=== PATIENT | female | born 1995 | race Caucasian/White ===

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

== ENCOUNTER 2018-02-04 17:13 | Emergency (ER) | payer BC ==
[2018-02-04 18:06] VITALS: BP 121/88
--- NOTE | 2018-02-04 19:14 | UC ---
UC General HPI - HPI Summary HPI Summary: pt presents for evaluation of her vaginal discharge and possible thrush. she states she saw the school nurse and was told that it looks like she has thrush. She denies any new sexual partners since August. she does state that her vaginal discharge has had an odor. she states that she can scrape - History of Current Complaint Chief Complaint: UCGeneralIllness Stated Complaint: ORAL COMPLAINT Hx Obtained From: Patient Hx Last Menstrual Period: 01/23/18 Onset/Duration: Gradual Onset Onset Severity: Mild Current Severity: None Pain Intensity: 0 - Allergy/Home Medications Allergies/Adverse Reactions: Allergies Allergy/AdvReac Type Severity Reaction Status Date / Time No Known Allergies Allergy Verified 02/04/18 17:56 Home Medications: Home Medications Norethindrone-Ethinyl Estrad [Balziva 28 Tablet] 1 tab DAILY 02/04/18 [History Confirmed 02/04/18] PMH/Surg Hx/FS Hx/Imm Hx Previously Healthy: Yes - Surgical History Surgical History: None - Social History Alcohol Use: Occasionally Substance Use Type: None Smoking Status (MU): Never Smoked Tobacco - Immunization History Most Recent Tetanus Shot: UTD Review of Systems All Other Systems Reviewed And Are Negative: Yes Constitutional: Positive: Negative Skin: Positive: Negative Eyes: Positive: Negative ENT: Positive: Other - tongue white discoloration and discomfort Respiratory: Positive: Negative Cardiovascular: Positive: Negative Gastrointestinal: Positive: Negative Genitourinary: Positive: Vaginal/Penile Discharge Motor: Positive: Negative Neurovascular: Positive: Negative Musculoskeletal: Positive: Negative Neurological: Positive: Negative Psychological: Positive: Negative Is Patient Immunocompromised?: No Physical Exam Triage Information Reviewed: Yes Appearance: Well-Appearing, No Pain Distress, Well-Nourished Vital Signs: Initial Vital Signs Temp 97.2 F 02/04/18 17:58 Pulse 81 02/04/18 17:58 Resp 16 02/04/18 17:58 BP 121/88 02/04/18 17:58 Pulse Ox 100 02/04/18 17:58 Vital Signs Reviewed: Yes Eye Exam: Normal ENT: Positive: Other - white crusting to tongue, mild Dental Exam: Normal Neck exam: Normal Respiratory Exam: Normal Cardiovascular Exam: Normal Abdominal Exam: Normal Bowel Sounds: Positive: Present Pelvic Exam: Positive: Other - pt deferred Musculoskeletal Exam: Normal Neurological Exam: Normal Psychological Exam: Normal Skin Exam: Normal Course/Dx - Course Course Of Treatment: pt deferred pelvic exam. she preferred tx for a yeast infection. she states she will f/u with her vision impaired teacher md when she returns home in february. I did tx her for thrush. pt encouraged to return if worse. I discussed the importance of having a vision impaired teacher exam. - Diagnoses Provider Diagnosis: Thrush, Vagina, candidiasis Discharge - Sign-Out/Discharge Documenting (check all that apply): Patient Departure All imaging exams completed and their final reports reviewed: No Studies - Discharge Plan Condition: Stable Disposition: HOME Prescriptions: Fluconazole 100 MG TAB* [Diflucan 100 MG TAB*] 100 mg PO ONCE #1 tab Nystatin SUSPENSION* 100,000 unit MT QID #200 [facility] [place] Patient Education Materials: Oral Candidiasis (ED), Yeast Infection (ED) Referrals: No Primary Care Phys,NOPCP [Primary Care Provider] - [facility] [Provider Group] Additional Instructions: I have sent you a prescription for diflucan to treat your presumed yeast infection. I have also sent you a mouth solution for your thrush. followup with your primary care physician. return if worse or any new symptoms. - Billing Disposition and Condition Condition: STABLE Disposition: Home
== END 2018-02-04 19:33 | disposition home or self-care (01) ==
LOC: UCCORT 17:13
DX: B37.3 Candidiasis of vulva and vagina (principal)
CPT/HCPCS: 81003; 84702; 99212; G0463